=== PATIENT | male | born 1970 | race Caucasian/White ===

== ENCOUNTER 2018-07-18 16:50 | Emergency (ER) | payer MEDICAID ==
[~2018-07-18] VITALS: Ht 162.6 cm; Wt 90.0 kg
[2018-07-18 16:53] VITALS: Ht 162.6 cm; Wt 90.0 kg
[2018-07-18] MEDS ORDERED: FURO-110 PO ×2 (20:52→20:53)
[2018-07-18] MEDS ORDERED: FURO40TA4 PO (20:52)
[2018-07-18] MEDS ORDERED: D-ME118S24 PO (20:54)
--- NOTE | 2018-07-18 20:58 | ERD ---
ER Documentation Chief Complaint Chief Complaint flu like symptoms HPI 47-year-old male presents for flulike symptoms times 2 months. Patient states that he has cough with production of phlegm. He states that he has subjective fevers also. He has some decreased appetite. Patient also notes that he is having shortness of breath with walking. Patient does have a history of ID with history of open heart surgery. He does however have cardiology following. States that he did take NyQuil and Tylenol at home with only mild relief. No other modifying factors noted. He denies any chest pain, abdominal pain, nausea, vomiting. ROS All systems reviewed and are negative except as per history of present illness. Medications Home Meds Active Scripts D-Methorphan Hb/P-Epd HCl/Bpm (Twxaoinqdy-Ekejunbkkti-Ci Syr) 118 Ml Syrup, 5 ML PO Q4H PRN for COUGH, #1 BOTTLE Prov:GLORIA WONG 07/18/18 Furosemide* (Lasix*) 20 Mg Tablet, 60 MG PO DAILY for chf for 3 Days, #9 TAB Prov:GLORIA WONG 07/18/18 Furosemide* (Furosemide*) 40 Mg Tablet, 40 MG PO DAILY for CHF, #30 TAB Prov:GLORIA WONG 07/18/18 Allergies Allergies: Coded Allergies: No Known Allergy (Unverified , 07/22/18) PMhx/Soc History of Surgery: Yes (cabg w/stent) Anesthesia Reaction: No Hx Neurological Disorder: No Hx Respiratory Disorders: No Hx Cardiac Disorders: Yes (chf;htn) Hx Psychiatric Problems: No Hx Miscellaneous Medical Probl: No Hx Alcohol Use: No Hx Substance Use: No Hx Tobacco Use: No Smoking Status: Former smoker Physical Exam Vitals Vital Signs Date Temp Pulse Resp B/P (MAP) Pulse Ox O2 O2 Flow FiO2 Time Delivery Rate 07/18/18 98.2 84 18 127/77 97 Room Air 21:13 (94) 07/18/18 98.7 80 19 119/75 98 16:53 (90) Physical Exam Const: No acute distress Head: Atraumatic Eyes: Normal Conjunctiva ENT: Tympanic membrane intact bilaterally, no bulging TM, no erythema noted, nasal mucosa moist without erythema, oral mucosa without erythema, no tonsillar exudates. Neck: Full range of motion. No meningismus. Resp: Clear to auscultation bilaterally, no wheezing Cardio: Regular rate and rhythm, no murmurs, no JVD noted, no abdominal bruit, no lower extremity edema Abd: Soft, non tender, non distended. Normal bowel sounds Skin: No petechiae or rashes Ext: No cyanosis, or edema Neur: Awake and alert Psych: Normal Mood and Affect Result Diagram: 07/18/18191507/18/181915 Results 24 hrs Laboratory Tests Test 07/18/18 19:16 White Blood Count 7.6 10^3/ul Red Blood Count 5.04 10^6/ul Hemoglobin 14.3 g/dl Hematocrit 43.7 % Mean Corpuscular Volume 86.7 fl Mean Corpuscular Hemoglobin 28.4 pg Mean Corpuscular Hemoglobin Concent 32.7 g/dl Red Cell Distribution Width 13.7 % Platelet Count 229 10^3/UL Mean Platelet Volume 9.3 fl Immature Granulocytes % 0.400 % Neutrophils % 64.4 % Lymphocytes % 21.5 % Monocytes % 10.4 % Eosinophils % 2.1 % Basophils % 1.2 % Nucleated Red Blood Cells % 0.0 /100WBC Immature Granulocytes # 0.030 10^3/ul Neutrophils # 4.9 10^3/ul Lymphocytes # 1.6 10^3/ul Monocytes # 0.8 10^3/ul Eosinophils # 0.2 10^3/ul Basophils # 0.1 10^3/ul Nucleated Red Blood Cells # 0.0 10^3/ul Sodium Level 143 mmol/L Potassium Level 4.3 mmol/L Chloride Level 102 mmol/L Carbon Dioxide Level 27 mmol/L Anion Gap 14 Blood Urea Nitrogen 15 mg/dl Creatinine 0.95 mg/dl Est Glomerular Filtrat Rate mL/min > 60 mL/min Glucose Level 107 mg/dl Calcium Level 9.2 mg/dl Total Bilirubin 0.4 mg/dl Direct Bilirubin 0.00 mg/dl Indirect Bilirubin 0.4 mg/dl Aspartate Amino Transf (AST/SGOT) 44 IU/L Alanine Aminotransferase (ALT/SGPT) 35 IU/L Alkaline Phosphatase 55 IU/L Troponin I < 0.012 ng/ml B-Type Natriuretic Peptide 2400 PG/ML Total Protein 8.2 g/dl Albumin 4.7 g/dl Globulin 3.50 g/dl Albumin/Globulin Ratio 1.34 Procedures/MDM Medical Decision Making: Differential diagnosis includes but not limited to upper respiratory infection, CHF exacerbation, pneumonia, sepsis. Patient appears well on examination. Given the patient was complaining of shortness of breath with walking basic labs and BNP as well as troponin was checked. EKG was unremarkable, there is no ST elevation or T wave changes suggest an acute ID Chest x-ray showed enlarged cardiac silhouette with findings that may suggest pulmonary edema CBC showed no anemia, no elevated WBC to suggest infection CMP showed normal electrolytes, normal renal and liver function BNP was 2400 Troponin was negative The patient had elevated BNP and findings on chest x-ray that suggested pulmon rolanda edema patient's lungs were clear to auscultation, there is no lower extremity edema, there is no JVD to suggest an acute CHF exacerbation. Patient was taking Lasix at home for congestive heart failure however he states that he has not taken the medication for a few days. Patient generally takes 40 mg daily of Lasix. Patient was given a refill for his Lasix. 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 Patient encouraged to follow with his salon manager. Patient likely has an upper respiratory infection that may have caused a mild exacerbation of his congestive heart failure. Patient felt stable for outpatient management. Patient advised to follow up with PCP in 1-2 days. Patient advised to return to ED for new or worsening symptoms. Patient stable on discharge from the ED. Disclaimer: Inadvertent spelling and grammatical errors are likely due to EHR/dictation software use and do not reflect on the overall quality of patient care. Also, please note that the electronic time recorded on this note does not necessarily reflect the actual time of the patient encounter. Departure Diagnosis: Primary Impression: Upper respiratory infection URI type: unspecified URI Qualified Codes: J06.9 - Acute upper respiratory infection, unspecified Additional Impression: Pulmonary edema Chronicity: chronic Qualified Codes: J81.1 - Chronic pulmonary edema Condition: Fair Patient Instructions: Preventing Common Respiratory Infections Referrals: COMM[facility]ITY CLINICS YOU HAVE RECEIVED A MEDICAL SCREENING EXAM AND THE RESULTS INDICATE THAT YOU DO NOT HAVE A CONDITION THAT REQUIRES URGENT TREATMENT IN THE EMERGENCY DEPARTMENT. FURTHER EVALUATION AND TREATMENT OF YOUR CONDITION CAN WAIT UNTIL YOU ARE SEEN IN YOUR DOCTORS OFFICE WITHIN THE NEXT 1-2 DAYS. IT IS YOUR RESPONSIBILITY TO MAKE AN APPOINTMENT FOR FOLOW-UP CARE. IF YOU HAVE A PRIMARY DOCTOR --you should call your primary doctor and schedule an appointment IF YOU DO NOT HAVE A PRIMARY DOCTOR YOU CAN CALL OUR PHYSICIAN REFERRAL HOTLINE AT IF YOU CAN NOT AFFORD TO SEE A PHYSICIAN YOU CAN CHOSE FROM THE FOLLOWING [facility] [address] [facility] [address] [facility] [address] [facility] [address] [facility] [address] [facility]. [facility]. [address] Additional Instructions: Llame al doctor MAANA y rafael heydi LOCO PARA DENTRO DE 1-2 COOLEY.Dgale a la secretaria que nosotros le instruimos hacer esta loco.Avise o llame si baltazar condicin se empeora antes de la loco. Regresa aqui si peor o no mejor. GLORIA WONG DO Jul 18, 2018 20:58
[2018-07-18 21:13] VITALS: BP 127/77; PULSE 84; RESP 18
== END 2018-07-18 21:15 | disposition home or self-care (01) ==
LOC: FTE 16:50 → EDBD 16:50 → FTE 21:15
DX: J06.9 Acute upper respiratory infection, unspecified (principal); J81.1 Chronic pulmonary edema; I11.0 Hypertensive heart disease with heart failure; I50.9 Heart failure, unspecified; Z87.891 Personal history of nicotine dependence; Z95.1 Presence of aortocoronary bypass graft
CPT/HCPCS: 71046; 80053; 83880; 84484; 85025; 93005; Z7502